=== PATIENT | male | born 1975 | race Two or more races ===

== ENCOUNTER 2017-04-20 12:24 | Emergency (ER) | payer BC ==
[~2017-04-20] VITALS: Ht 175.3 cm; Wt 77.0 kg
[2017-04-20 12:28] VITALS: BP 151/88
[2017-04-20] MEDS ORDERED: ASPIRIN 81 MG TABLET CHEW PO ONE (13:30)
[2017-04-20 13:33] LABS: HEMATOCRIT 48.4 % (39.2-51.8); HEMOGLOBIN 16.3 g/dL (13.7-18.0)
[2017-04-20 13:45] LABS: ASPARTATE AMINO TRANSFERASE 21 U/L (15-37); BLOOD UREA NITROGEN 17 mg/dL (7-18)
[2017-04-20 13:50] LABS: IS PT STATUS REG ER OR PRE ER? YES
[2017-04-20] MEDS ORDERED: ASPIRIN 81 MG TABLET CHEW ONE (14:11)
== END 2017-04-20 15:26 | disposition home or self-care (01) ==
LOC: ED 15:10
DX: R07.89 Other chest pain (principal); J06.9 Acute upper respiratory infection, unspecified
CPT/HCPCS: 36415; 71010; 80053; 83690; 84484; 85025; 93005; 99285

== ENCOUNTER 2018-04-08 01:01 | Emergency (ER) | payer BC ==
[~2018-04-08] VITALS: Ht 175.3 cm; Wt 60.0 kg
[2018-04-08 01:57] LABS: BASOPHILS # (AUTO) 0.04 x10^3/uL (0-0.1); BASOPHILS % (AUTO) 1 % (0-1); EOSINOPHILS # (AUTO) 0.29 x10^3/uL (0-0.4); EOSINOPHILS % (AUTO) 5 % (1-7); LYMPHOCYTES % (AUTO) 44 % (22-44); MD NO; MEAN CORPUSCULAR HEMOGLOBIN 30.3 pg (27.5-34.5); MEAN CORPUSCULAR HGB CONC 34.8 g/dL (33.2-36.2); MEAN CORPUSCULAR VOLUME 87.1 fL (81-97); MEAN PLATELET VOLUME 7.5 fL (7.4-10.4); MONOCYTES # (AUTO) 0.45 x10^3/uL (0.2-0.8); MONOCYTES % (AUTO) 7 % (2-9); NEUTROPHILS # (AUTO) 2.64 x10^3/uL (1.8-6.8); NEUTROPHILS % (AUTO) 43 % (42-75); PLATELET COUNT 282 x10^3/uL (130-400); RED BLOOD COUNT 5.31 x10^6/uL (4.38-5.82); RED CELL DISTRIBUTION WIDTH 13.5 % (9.4-14.8)
[2018-04-08] MEDS ORDERED: ASPIRIN 81 MG TABLET CHEW ONE (01:58)
[2018-04-08] MEDS ORDERED: ASPIRIN 81 MG TABLET CHEW PO ONE (02:00)
[2018-04-08 02:07] LABS: ALANINE AMINOTRANSFERASE 26 U/L (12-78); ALBUMIN 3.8 g/dL (3.4-5.0); ANION GAP 7 mmol/L (5-15); CALCIUM 8.9 mg/dL (8.5-10.1); CHLORIDE 104 mmol/L (98-107)
[2018-04-08 02:12] LABS: ALKALINE PHOSPHATASE 88 U/L (45-117); BILIRUBIN,TOTAL 0.6 mg/dL (0.2-1.0); TOTAL PROTEIN 7.5 g/dL (6.4-8.2); TROPONIN I < 0.015 ng/mL (0.000-0.045)
[2018-04-08 03:28] VITALS: BP 110/81
== END 2018-04-08 03:31 | disposition home or self-care (01) ==
LOC: ED 03:29
DX: F41.1 Generalized anxiety disorder (principal); R07.89 Other chest pain; E78.00 Pure hypercholesterolemia, unspecified
CPT/HCPCS: 36415; 71046; 80053; 84484; 85025; 93005; 99285

== ENCOUNTER 2020-01-27 15:35 | Emergency (ER) | payer BC ==
[~2020-01-27] VITALS: Ht 175.3 cm; Wt 66.4 kg
--- NOTE | 2020-01-27 16:12 | NUR ---
PT CAME IN [place] RLQ PAIN X 1 DAY. [place] AND FELT THE URGE TO HAVE A BM AND HIS RLQ FELT HOT AND PAINFUL. PT SAYS IT FEELS BETTER NOW. IS RESTING IN [place]. ACCOMPANIED BY FRIEND
[2020-01-27 16:53] LABS: MICROSCOPIC NOT IND
[2020-01-27 17:03] LABS: BASOPHILS # (AUTO) 0.06 x10^3/uL (0-0.1); BASOPHILS % (AUTO) 1 % (0-1); EOSINOPHILS # (AUTO) 0.13 x10^3/uL (0-0.4); EOSINOPHILS % (AUTO) 1 % (1-7); LYMPHOCYTES # (AUTO) 1.83 x10^3/uL (1-3.4); LYMPHOCYTES % (AUTO) 18 % (22-44); MD NO; MEAN CORPUSCULAR HEMOGLOBIN 30.8 pg (27.5-34.5); MEAN CORPUSCULAR HGB CONC 33.8 g/dL (33.2-36.2); MEAN PLATELET VOLUME 7.6 fL (7.4-10.4); MONOCYTES # (AUTO) 0.76 x10^3/uL (0.2-0.8); MONOCYTES % (AUTO) 8 % (2-9); NEUTROPHILS # (AUTO) 7.31 x10^3/uL (1.8-6.8); NEUTROPHILS % (AUTO) 72 % (42-75); PLATELET COUNT 271 x10^3/uL (130-400); RED BLOOD COUNT 5.43 x10^6/uL (4.38-5.82); RED CELL DISTRIBUTION WIDTH 13.8 % (9.4-14.8)
[2020-01-27 17:06] VITALS: BP 132/85
[2020-01-27 17:10] LABS: ALBUMIN 4.1 g/dL (3.4-5.0); ANION GAP 5 mmol/L (5-15); CALCIUM 8.9 mg/dL (8.5-10.1); CHLORIDE 103 mmol/L (98-107)
[2020-01-27 17:17] LABS: ALANINE AMINOTRANSFERASE 24 U/L (12-78); ALKALINE PHOSPHATASE 82 U/L (45-117); BILIRUBIN,TOTAL 0.8 mg/dL (0.2-1.0); TOTAL PROTEIN 8.2 g/dL (6.4-8.2); TROPONIN I < 0.015 ng/mL (0.000-0.045)
[2020-01-27] MEDS ORDERED: OMNIPAQUE 350 MG/ML, 100ML BOTTLE ONE (19:12)
[2020-01-27] MEDS ORDERED: ACETAMINOPHEN 325 MG TABLET ONE (19:28)
[2020-01-27] MEDS ORDERED: ACETAMINOPHEN 325 MG TABLET PO ONE (19:30)
== END 2020-01-27 19:59 | disposition home or self-care (01) ==
LOC: ED 19:00
DX: R10.31 Right lower quadrant pain (principal); E78.5 Hyperlipidemia, unspecified; R94.31 Abnormal electrocardiogram [ECG] [EKG]; Z87.891 Personal history of nicotine dependence
CPT/HCPCS: 36415; 71045; 74177; 80053; 81003; 83690; 84484; 85025; 93005; 99285; Q9967